=== PATIENT | female | born 1935 | race Caucasian/White ===

== ENCOUNTER → 2016-06-29 | Outpatient (CLI) | payer MEDICARE ==
[~2016-06-29] MED LIST: AMIT10TA6 PO; AMLO1CAP6 PO; AMLO2.5T PO; ASP81CT; CARTIA XT ER; CORAL CALCIUM; ESTR0.5T PO; GLUCOSAMINE/CONDROIT; HCTZ12.5T; IBP200T; METO-272 PO; MULT1TAB63; NAPR220T76 PO; OMEP20TA2 PO; OMG1KC; PREMARIN 0.3MG
== END ==
LOC: CARD 10:25
PROVIDERS: ATTEND Internal Medicine
DX: R00.2 Palpitations (principal)
CPT/HCPCS: 93225; 93226

== ENCOUNTER → 2016-08-30 | Outpatient (CLI) | payer MEDICARE ==
--- NOTE | 2016-08-30 19:59 | Diagnostic Imaging Report ---
Bilateral screening mammogram The current study was also evaluated with a Computer Aided Detection (CAD) system. Indication: Screening. No current complaints stated on the questionnaire. COMPARISON: 06/19/15. FINDINGS: The breasts are composed of scattered fibroglandular densities. There are scattered benign-appearing calcifications. Allowing for technique and positional differences, no suspicious change is seen. IMPRESSION: Dense breasts with no definite change. ACR BI-RADS Category 2: Benign findings. Result letter will be mailed to the patient. Note: At least 10% of breast cancer is not imaged by mammography. Dictated by: Dictated on workstation # [id number]
== END ==
LOC: RAD 11:17
PROVIDERS: ATTEND Internal Medicine
DX: Z12.31 Encounter for screening mammogram for malignant neoplasm of breast (principal)
CPT/HCPCS: 77067

== ENCOUNTER → 2017-01-03 | Outpatient (CLI) | payer MEDICARE ==
[~2017-01-03] MED LIST changes: +ASPI-586 PO; +ASPI-983 PO; +CALC-140 PO; +ESTR1TAB24 PO; +FERR325T5 PO; +GLUC-144 PO; +METO-370 PO; +MULT1CAP27 PO; +NAPR220C11 PO; +PANT40TA3; +RIVA20TA PO
--- NOTE | 2017-01-03 16:40 | Diagnostic Imaging Report ---
Three views of the right ribs. INDICATION: Right rib pain. FINDINGS: No rib fracture is seen. The right lung is clear. The heart size is mildly enlarged. IMPRESSION: No rib fracture is seen. Dictated by: Dictated on workstation # [id number]
--- NOTE | 2017-01-04 12:32 | Diagnostic Imaging Report ---
EXAMINATION: Three views of the thoracic spine. INDICATION: Back pain. FINDINGS: The vertebral body heights are preserved. The disc heights are also preserved. The alignment at the posterior spinal line is satisfactory. There are multilevel anterior osteophytes in the mid and lower thoracic spine. The paraspinal soft tissues appear unremarkable except for mild cardiac enlargement. IMPRESSION: Mild degenerative changes. Cardiomegaly. Dictated by: Dictated on workstation # [id number]
== END ==
LOC: RAD 16:04
PROVIDERS: ATTEND Nurse Practitioner
DX: M54.6 Pain in thoracic spine (principal); R07.81 Pleurodynia
CPT/HCPCS: 71100; 72072

== ENCOUNTER → 2017-01-06 | Outpatient (CLI) | payer MEDICARE ==
[~2017-01-06] MED LIST changes: -ASPI-586 PO; -ASPI-983 PO; -CALC-140 PO; -ESTR1TAB24 PO; -FERR325T5 PO; -GLUC-144 PO; -METO-370 PO; -MULT1CAP27 PO; -NAPR220C11 PO; -PANT40TA3; -RIVA20TA PO
--- NOTE | 2017-01-06 09:26 | Diagnostic Imaging Report ---
PROCEDURE: US abdomen complete. TECHNIQUE: Multiple real-time grayscale images were obtained over the abdomen in various projections. INDICATION: Abdominal pain FINDINGS: The visualized portions of the pancreas appear unremarkable. The pancreas is fairly homogeneous with no focal lesion. There is hepatopetal flow in the portal vein seen. The gallbladder demonstrates no stones or wall thickening. The CBD is 6 cm in caliber. The spleen is 7.2 CM in length. The right kidney is 11.6 and the left kidney is 10.8 CM in length. There is no hydronephrosis or focal lesion. The abdominal aorta is normal in caliber. The IVC appears unremarkable. There is no ascites seen. Sonographic Lu sign is reportedly negative. IMPRESSION: Unremarkable exam. Dictated by: Dictated on workstation # [id number]
== END ==
LOC: RAD 06:41
PROVIDERS: ATTEND Nurse Practitioner
DX: R10.84 Generalized abdominal pain (principal)
CPT/HCPCS: 76700

== ENCOUNTER → 2017-02-28 | Outpatient (CLI) | payer MEDICARE ==
[2017-02-28 15:03] LABS: BASOPHILS % (AUTO) 0 % (0-10); EOSINOPHILS # (AUTO) 0.1 10^3/uL (0.0-0.3); EOSINOPHILS % (AUTO) 1 % (0-10); LYMPHOCYTES # (AUTO) 1.8 X 10^3 (1.0-4.0); LYMPHOCYTES % (AUTO) 32 % (12-44); MEAN CORPUSCULAR HEMOGLOBIN 21 PG (25-34); MEAN CORPUSCULAR HGB CONC 29 G/DL (32-36); MEAN CORPUSCULAR VOLUME 73 FL (80-99); MEAN PLATELET VOLUME 10.2 FL (7.4-10.4); MONOCYTES # (AUTO) 0.6 X 10^3 (0.0-1.0); MONOCYTES % (AUTO) 10 % (0-12); NEUTROPHILS # (AUTO) 3.2 X 10^3 (1.8-7.8); NEUTROPHILS % (AUTO) 56 % (42-75); PLATELET COUNT 255 10^3/uL (130-400); RED CELL DISTRIBUTION WIDTH 16.5 % (10.0-14.5); RETICULOCYTE % 1.28 % (0.50-2.40); WHITE BLOOD COUNT 5.7 10^3/uL (4.3-11.0)
[2017-02-28 15:31] LABS: BAND NEUTROPHILS 0 %; BASOPHILS % (MANUAL) 1 %; EOSINOPHILS % (MANUAL) 1 %; LYMPHOCYTES % (MANUAL) 36 %; NEUTROPHILS % (MANUAL) 58 %
[2017-02-28 15:32] LABS: ANISOCYTOSIS MODERATE; HYPOCHROMASIA MARKED; MICROCYTOSIS SLIGHT
== END ==
LOC: LAB 14:39
PROVIDERS: ATTEND Internal Medicine
DX: D62 Acute posthemorrhagic anemia (principal)
CPT/HCPCS: 36415; 82728; 85007; 85027; 85045

== ENCOUNTER 2017-03-15 07:54 | Outpatient (RCR) | payer MEDICARE ==
[~2017-03-15] VITALS: Ht 162.6 cm; Wt 74.8 kg
[2017-03-15] VITALS (8 sets, daily range): BP systolic 122–166; BP diastolic 59–68
[2017-03-15] MEDS ORDERED: NS IV 500 ML 500 ML ONE (08:26)
[2017-03-15] MEDS ORDERED: NS IV 500 ML 500 ML IV SCH (10:00)
[2017-03-15] MEDS ORDERED: RIVA20TA PO (13:26)
[2017-03-15] MEDS ORDERED: ASPI-983 PO (13:26)
[2017-03-15] MEDS ORDERED: MULT1CAP27 PO (13:26)
[2017-03-15] MEDS ORDERED: METO-370 PO (13:26)
[2017-03-15] MEDS ORDERED: NAPR220C11 PO (13:26)
[2017-03-15] MEDS ORDERED: ESTR1TAB24 PO (13:26)
[2017-03-15] MEDS ORDERED: CALC-140 PO (13:26)
[2017-03-15] MEDS ORDERED: GLUC-144 PO (13:26)
[2017-03-22] MEDS ORDERED: METO-370 PO (10:47)
[2017-03-22] MEDS ORDERED: GLUC-144 PO (10:47)
[2017-03-22] MEDS ORDERED: CALC-140 PO (10:47)
[2017-03-22] MEDS ORDERED: NAPR220C11 PO (10:47)
[2017-03-22] MEDS ORDERED: ASPI-586 PO (10:47)
[2017-03-22] MEDS ORDERED: ESTR1TAB24 PO (10:47)
[2017-03-22] MEDS ORDERED: FERR325T5 PO (10:47)
[2017-03-22] MEDS ORDERED: RIVA20TA PO (10:48)
[2017-03-30] MEDS ORDERED: PANT40TA3 (19:31)
== END 2017-06-12 | disposition home or self-care (01) ==
LOC: SDC 07:54
PROVIDERS: ATTEND Internal Medicine
DX: D64.9 Anemia, unspecified (principal)
CPT/HCPCS: 36415; 36430; 82728; 86850; 86900; 86901; 86920

== ENCOUNTER 2017-03-22 05:43 | Outpatient (CLI) | payer MEDICARE ==
[~2017-03-22] VITALS: Ht 162.6 cm; Wt 74.8 kg
[~2017-03-22 05:43] MED LIST changes: +ASPI-983 PO; +CALC-140 PO; +ESTR1TAB24 PO; +GLUC-144 PO; +MULT1CAP27 PO; +NAPR220C11 PO; +RIVA20TA PO
[2017-03-22] MEDS ORDERED: FERR325T5 PO (10:47)
[2017-03-22] MEDS ORDERED: CALC-140 PO (10:47)
[2017-03-22] MEDS ORDERED: ASPI-586 PO (10:47)
[2017-03-22] MEDS ORDERED: NAPR220C11 PO (10:47)
[2017-03-22] MEDS ORDERED: GLUC-144 PO (10:47)
[2017-03-22] MEDS ORDERED: ESTR1TAB24 PO (10:47)
[2017-03-22] MEDS ORDERED: METO-272 PO (10:47)
[2017-03-22] MEDS ORDERED: RIVA20TA PO (10:48)
== END 2017-03-22 10:50 ==
LOC: PREOP 05:43
PROVIDERS: ATTEND Surgery
DX: Z01.818 Encounter for other preprocedural examination (principal); D50.9 Iron deficiency anemia, unspecified

== ENCOUNTER 2017-03-24 10:15 | Day surgery (SDC) | payer MEDICARE ==
[~2017-03-24] VITALS: Ht 162.6 cm; Wt 74.8 kg
[~2017-03-24 10:15] MED LIST changes: +ASPI-586 PO; +FERR325T5 PO
[2017-03-24 10:30] VITALS: BP 183/85
[2017-03-24] MEDS ORDERED: NS IV 500 ML 500 ML IV PRN (10:30)
[2017-03-24] MEDS ORDERED: HURRICAINE EXT TUBE (BENZOCAINE) XX PRN (10:45)
--- NOTE | 2017-03-24 11:19 | History & Physicial ---
History of Present Illness History of Present Illness Reason for visit/HPI to undergo an upper endoscopy with concomitant colonoscopy, to evaluate iron deficiency anemia requiring blood transfusion Date of Admission Date Seen by Provider: Mar 24, 2017 Time Seen by Provider: 11:17 I consulted on this patient on 03/24/17 11:17 Attending Physician Andrea Montes MD Admitting Physician Sd Alarcon MD Consult Allergies and Home Medications Allergies Coded Allergies: No Known Drug Allergies (Verified , 07/28/07) Home Medications Aspirin 81 Mg Tablet.dr, 81 MG PO DAILY, (Reported) Calcium Carbonate/Vitamin D3 1 Each Tablet, 1 EACH PO BID, (Reported) Estradiol 1 Mg Tablet, 1 MG PO UD, (Reported) take 3 times a week, takes on TUE,TUE,TUE Ferrous Sulfate 325 Mg Tablet.dr, 325 MG PO BID, (Reported) Glucosamine HCl/Chondr Cruz A Na 1 Each Tablet, 1 EACH PO BID, (Reported) Metoprolol Succinate 50 Mg Tab.er.24h, 50 MG PO BID, (Reported) Naproxen Sodium 220 Mg Capsule, 220 MG PO DAILY, (Reported) Rivaroxaban 20 Mg Tablet, 20 MG PO DAILY, (Reported) Past Sfcvxsl-Cxovic-Anmggf Hx Patient Social History Employed/Student: retired Alcohol Use: Denies Use Recreational Drug Use: No Smoking Status: Former Smoker Former Smoker, Quit: Jun 06, 1969 Recent Foreign Travel: No Contact w/other who traveled: No Recent Hopitalizations: No Recent Infectious Disease Expo: No Immunizations Up To Date Date of Pneumonia Vaccine: Jul 15, 2008 Date of Influenza Vaccine: Mar 04, 2017 Seasonal Allergies Seasonal Allergies: No Respiratory No Cardiovascular Yes Atrial Fibrillation, Hypertension Neurological No Reproductive System Hx Reproductive Disorders: No Genitourinary No Gastrointestinal No Musculoskeletal Yes Arthritis, Chronic Back Pain Endocrine History of Endocrine Disorders: No HEENT History of HEENT Disorders: No Cancer No Blood Transfusions Adverse Reaction to a Blood Tr: No Family Medical History Significant Family History: No Pertinent Family Hx Constitutional: malaise EENTM: no symptoms reported Respiratory: no symptoms reported Cardiovascular: no symptoms reported Gastrointestinal: see HPI Genitourinary: no symptoms reported Musculoskeletal: no symptoms reported Skin: no symptoms reported Psychiatric/Neurological: No Symptoms Reported Physical Exam Vital Signs Vital Sign - Last 12Hours 03/24/17 10:30 Temp 97.9 Pulse 83 Resp 16 B/P (MAP) 183/85 Pulse Ox 96 O2 Delivery Room Air Capillary Refill : General Appearance: No Apparent Distress Neck: Normal Inspection Cardiovascular: Regular Rate, Rhythm Gastrointestinal: Non Tender, Soft Rectal: Deferred Neurologic/Psychiatric: Alert, Oriented x3 Skin: Warm/Dry Assessment/Plan Assessment and Plan lady with ongoing iron deficiency anemia. 4 EGD with colonoscopy Problems: ANDREA MONTES MD Mar 24, 2017 11:19 am
--- NOTE | 2017-03-24 11:20 | Conscious Sedation/ASA ---
Conscious Sedation Pre-Proced Time Reviewed: 11:19 ASA Class: 2 Airway Mallampati Classification: ([place] appropriate class) I. II. III, IV Lungs Heart ASA score ASA 1: a normal healthy patient ASA 2: a patient with a mild systemic disease (mid diabetes, controlled hypertension, obesity ASA 3: a patient with a severe systemic disease that limits activity (angina , COPD, prior Myocardial infarction) ASA 4: a patient with an incapacitating disease that is a constant threat to life (CHF, renal failure) ASA 5: a moribund patient not expected to survive 24 hrs. (ruptured aneurysm) ASA 6: a declared brain patient whose organs are being harvested. For emergent operations, add the letter E after the classification Grade 1 Sedation Plan: Discussed options with patient/fam Note The patient is an appropriate candidate to undergo the planned procedure, sedation, and anesthesia. The patient immediately re-assessed prior to indication. ANDREA MONTES MD Mar 24, 2017 11:20 am
[2017-03-24] MEDS ORDERED: fentaNYL INJECTION 100 MCG/2 ML AMP ONE ×2 (11:32)
[2017-03-24] MEDS ORDERED: HURRICAINE EXT TUBE (BENZOCAINE) ONE (11:33)
[2017-03-24] MEDS ORDERED: MIDAZOLAM 2 MG/2 ML (VERSED) VIAL ONE ×4 (11:33)
[2017-03-24] MEDS: MIDAZOLAM 2 MG/2 ML (VERSED) VIAL IVP PRN ×3 (11:55→12:02)
[2017-03-24] MEDS: fentaNYL INJECTION 100 MCG/2 ML AMP IVP PRN ×2 (11:56→11:59)
--- NOTE | 2017-03-24 12:26 | Endo Procedure Record ---
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 No polyps Procedure Performed EGD colonoscopy to cecum Description of Procedure Anesthesia Type: Conscious Sedation Specimen(s) collected/removed none Description of the Procedure Indication for procedure: This lady came in for GI endoscopy to investigate ongoing iron deficiency anemia, requiring blood transfusion. Informed consent was obtained after reviewing the procedures in detail. Description of the procedures. EGD: She was placed in left lateral decubitus position and her vital signs were monitored. Conscious sedation was achieved using Versed and fentanyl. The flexible gastroscope was introduced down the esophagus, past the stomach, into the proximal duodenum. Findings Esophagus: Tortuous with a short, uncomplicated hiatal hernia. Stomach: Multiple shallow erosions and AV malformations with found at the distal stomach. There was no active bleeding. Duodenum : Normal. She tolerated the procedure well and was turned around in preparation for colonoscopy. Impression: Iron deficiency anemia. 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 Colonoscopy: Digital rectal examination was unremarkable. The colonoscope was then introduced into the rectum and advanced all the way up to the cecum. The quality of bowel preparation was excellent. The scope was then withdrawn slowly and the mucosa examined in a systematic fashion. Finding: Diffuse diverticulosis. No polyps were found. She tolerated both procedures well and was taken back to the nursing area in a stable condition. Impression: Iron deficiency anemia. No polyps. Diffuse diverticulosis Copies To: JULIAN CADET MD, XAVIER M MD Mar 24, 2017 12:26 pm
--- NOTE | 2017-03-24 12:28 | Discharge Inst-Simple/Standard ---
Discharge Inst-Standard Discharge Medications New, Converted or Re-Newed RX: Other Patient Instructions/Follow Up Plan of Care/Instructions/FU: please call for Protonix 40 mg daily for 30 days with 5 refills to her pharmacy. Follow-up with Dr. Alarcon, her primary physician. Activity as Tolerated: Yes Discharge Diet: No Restrictions ANDREA MONTES MD Mar 24, 2017 12:28 pm
[2017-03-24 12:30] VITALS: BP 154/72
[2017-03-24 13:00] VITALS: BP 161/76
[2017-03-24 13:19] VITALS: BP 161/76
== END 2017-03-24 13:15 | disposition home or self-care (01) ==
LOC: ENDO 10:15
PROVIDERS: ATTEND Surgery
DX: D50.9 Iron deficiency anemia, unspecified (principal); K57.30 Diverticulosis of large intestine without perforation or abscess without bleeding; K31.819 Angiodysplasia of stomach and duodenum without bleeding; K25.9 Gastric ulcer, unspecified as acute or chronic, without hemorrhage or perforation; K44.9 Diaphragmatic hernia without obstruction or gangrene; I48.91 Unspecified atrial fibrillation; I10 Essential (primary) hypertension; Z87.891 Personal history of nicotine dependence; Z79.82 Long term (current) use of aspirin

== ENCOUNTER 2017-03-30 18:53 | Emergency (ER) | payer MEDICARE ==
[~2017-03-30] VITALS: Ht 162.6 cm; Wt 73.9 kg
[2017-03-30] MEDS ORDERED: ASPIRIN 81 MG CHEW (CHILDREN'S ASA) PO ONE (19:30)
[2017-03-30] MEDS ORDERED: PANT40TA3 (19:31)
[2017-03-30 19:52] LABS: BASOPHILS % (AUTO) 0 % (0-10); EOSINOPHILS % (AUTO) 0 % (0-10); LYMPHOCYTES # (AUTO) 1.6 X 10^3 (1.0-4.0); LYMPHOCYTES % (AUTO) 20 % (12-44); MEAN CORPUSCULAR HEMOGLOBIN 25 PG (25-34); MEAN CORPUSCULAR HGB CONC 32 G/DL (32-36); MEAN CORPUSCULAR VOLUME 78 FL (80-99); MONOCYTES # (AUTO) 1.3 X 10^3 (0.0-1.0); MONOCYTES % (AUTO) 15 % (0-12); NEUTROPHILS # (AUTO) 5.2 X 10^3 (1.8-7.8); NEUTROPHILS % (AUTO) 64 % (42-75); PLATELET COUNT 206 10^3/uL (130-400); RED BLOOD COUNT 4.84 10^6/uL (4.35-5.85); RED CELL DISTRIBUTION WIDTH 25.3 % (10.0-14.5); WHITE BLOOD COUNT 8.1 10^3/uL (4.3-11.0)
[2017-03-30] MEDS ORDERED: meTOproloL SUCCINATE 50 MG (TOPROL XL) TAB PO SCH (20:00)
[2017-03-30] MEDS ORDERED: meTOprolol 5 MG/5 ML (LOPRESSOR) VIAL IV ONE (20:00)
[2017-03-30 20:05] LABS: INR 1.8 (0.8-1.4); PROTHROMBIN TIME PATIENT 21.1 SEC (12.2-14.7)
[2017-03-30 20:14] LABS: ALANINE AMINOTRANSFERASE 8 U/L (0-55); ALBUMIN 3.6 GM/DL (3.2-4.5); AMYLASE 73 U/L (25-125); ANION GAP 8 MMOL/L (5-14); ASPARTATE AMINO TRANSFERASE 23 U/L (5-34); BILIRUBIN,TOTAL 0.6 MG/DL (0.1-1.0); BLOOD UREA NITROGEN 14 MG/DL (7-18); BUN/CREATININE RATIO 16; CALCIUM 9.3 MG/DL (8.5-10.1); CARBON DIOXIDE 28 MMOL/L (21-32); CHLORIDE 102 MMOL/L (98-107); CREATINE KINASE 52 U/L (29-168); CREATININE SERUM 0.86 MG/DL (0.60-1.30); GFR ESTIMATED > 60; GLUCOSE 140 MG/DL (70-105); LIPASE 16 U/L (8-78); POTASSIUM 3.9 MMOL/L (3.6-5.0); SODIUM 138 MMOL/L (135-145); TOTAL PROTEIN 7.2 GM/DL (6.4-8.2)
--- NOTE | 2017-03-30 20:16 | Diagnostic Imaging Report ---
INDICATION: Elevated blood pressure. Complaining of chest pain, neck and shoulder pain. EXAMINATION: Chest, 03/30/2017. COMPARISON: 10/20/12. FINDINGS: Cardiomegaly noted. Pulmonary vasculature is unremarkable. There is a density superimposed upon the lower thoracic spine, larger than on previous imaging and most likely a large hiatal hernia. Although it is increased it appears more prominent than on previous. It is similar to a study dated 10/20/12. There is atelectasis at the lung bases. No effusions. No pneumothorax. IMPRESSION: Cardiomegaly with likely superimposed large hiatal hernia. Remaining chest is fairly similar to previous imaging. Dictated by: Dictated on workstation # [id number]
[2017-03-30 20:20] LABS: TROPONIN I < 0.30 NG/ML (<0.30)
[2017-03-30 20:31] VITALS: BP 165/86
[2017-03-30] MEDS ORDERED: IOHEXOL 350 MG/ML 150 ML (OMNIPAQUE 350) VIAL IV ONE (21:30)
[2017-03-30] MEDS ORDERED: NS 100 ML (IVPB) BAG IV ONE (21:30)
--- NOTE | 2017-03-30 22:31 | Diagnostic Imaging Report ---
INDICATION: Upper back pain for a day, increasing blood pressure. Prior hysterectomy. EXAMINATION: CTA of the chest with a CT of the abdomen and pelvis with contrast 03/30/2017 Correlation made to a previous CTA dated 07/28/2007 FINDINGS: The thoracic aorta is intact and unremarkable. The pulmonary arteries demonstrate no central or proximal segmental pulmonary emboli. There is no evidence for hilar adenopathy. No mediastinal or axillary adenopathy is appreciated. There is no acute process within the lungs. There are areas of scar or atelectasis noted in the lingular region. There is a large hiatal hernia. CT abdomen and pelvis: Multiple cystic appearing lesions noted in the liver, the largest is approximately 14 mm in greatest dimension. It is unchanged from the previous examination. Multiple similar but smaller areas of hypodensity diffusely throughout the liver too small to characterize. The spleen is unremarkable. The adrenal glands demonstrate mild hyperplasia on the left with the right adrenal gland unremarkable. Pancreas is normal. Kidneys demonstrate extrarenal pelves bilaterally, right larger than left, a definite obstructive process not appreciated. There is no ascites or free air. No lymphadenopathy. Diverticulosis noted throughout the sigmoid colon without evidence for diverticulitis. The appendix is unremarkable. A fat-containing anterior abdominal wall hernia is noted. There is atherosclerotic disease. There is diffuse degenerative disease within the visualized osseous structures with an area of moderate to possibly severe stenosis centrally in the lower lumbar region. Nonspecific apparent fecalization of the small bowel loops is also noted but no obstruction is appreciated with no dilatation of the bowel loops noted. IMPRESSION: 1. Large hiatal hernia 2. Chronic changes within the chest with emphysematous disease and no acute abnormality. No pulmonary embolus is seen. 3. Lesions in the liver too small to characterize with the larger area stable from previous, therefore likely a benign process. Extrarenal pelvis noted in both kidneys with no obstructive process seen distally to suggest hydronephrosis. 4. Diffuse diverticular disease along the sigmoid colon with definite diverticulitis not seen but very early diverticulitis may not be visualized; correlate with symptoms. 5. Mild fecalization noted within the small bowel loops which is typically seen in a chronic ileus or obstructive process but no dilated loops of bowel or evidence for obstruction seen. Clinical correlation recommended. Other incidental findings as noted above. Dictated by: Dictated on workstation # [id number]
[2017-03-30 23:00] VITALS: BP 155/90
[2017-03-30] MEDS ORDERED: PANTOPRAZOLE 40 MG/10 ML (PROTONIX) VIAL IV ONE (23:00)
[2017-03-30] MEDS ORDERED: KETOROLAC 30 MG/ML VIAL IVP ONE (23:00)
--- NOTE | 2017-03-30 23:39 | ED General ---
General Chief Complaint: Cardiac/General Problems Stated Complaint: HIGH BLOOD PRESSURE,UPPER BACK/NECK PAIN Nursing Triage Note: c/o upper back/neck pain x2 days. reports high blood pressure tonight Nursing Sepsis Screen: No Definite Risk Allergies and Home Medications Allergies Coded Allergies: No Known Drug Allergies (Verified , 07/28/07) Home Medications Aspirin 81 Mg Tablet.dr, 81 MG PO DAILY, (Reported) Calcium Carbonate/Vitamin D3 1 Each Tablet, 1 EACH PO BID, (Reported) Estradiol 1 Mg Tablet, 1 MG PO UD, (Reported) take 3 times a week, takes on MON,TUE,TUE Ferrous Sulfate 325 Mg Tablet.dr, 325 MG PO BID, (Reported) Glucosamine HCl/Chondr Cruz A Na 1 Each Tablet, 1 EACH PO BID, (Reported) Metoprolol Succinate 50 Mg Tab.er.24h, 50 MG PO BID, (Reported) Pantoprazole Sodium 40 Mg Tablet.dr, (Reported) Rivaroxaban 20 Mg Tablet, 20 MG PO DAILY, (Reported) Past Yinwyzt-Mwovpu-Udnnvk Hx Patient Social History Alcohol Use: Denies Use Recreational Drug Use: No Smoking Status: Former Smoker Type Used: Cigarettes Former Smoker, Quit: Jun 06, 1969 Recent Foreign Travel: No Contact w/Someone Who Travel: No Recent Infectious Disease Expo: No Recent Hopitalizations: No Immunizations Up To Date Tetanus Booster (TDap): Unknown Date of Pneumonia Vaccine: Jul 15, 2008 Date of Influenza Vaccine: Mar 04, 2017 Seasonal Allergies Seasonal Allergies: No Surgeries History of Surgeries: Yes (HYST,R BREAST BIOPSY,CATARACTS REMOVED,LENS IMPLANTS ) Respiratory History of Respiratory Disorde: No Cardiovascular History of Cardiac Disorders: Yes Cardiac Disorders: Atrial Fibrillation, Hypertension Neurological History of Neurological Disord: No Reproductive System : No Hx Reproductive Disorders: No [employer] History: Menopausal Genitourinary History of Genitourinary Disor: No Gastrointestinal History of Gastrointestinal Di: No Musculoskeletal History of Musculoskeletal Dis: Yes Musculoskeletal Disorders: Arthritis, Chronic Back Pain Endocrine History of Endocrine Disorders: No HEENT History of HEENT Disorders: No Cancer History of Cancer: No Psychosocial History of Psychiatric Problem: No Integumentary History of Skin or Integumenta: No Blood Transfusions History of Blood Disorders: Yes (ANEMIA) Adverse Reaction to a Blood Tr: No Family Medical History Significant Family History: No Pertinent Family Hx Physical Exam Vital Signs Vital Sign - Last 12Hours 03/30/17 19:31 Temp 98.4 Pulse 88 Resp 18 B/P (MAP) 201/85 Pulse Ox 97 O2 Delivery Room Air Capillary Refill : Less Than 3 Seconds Progress/Results/Core Measures Results/Orders Lab Results Laboratory Tests Test 03/30/17 19:40 Range/Units White Blood Count 8.1 4.3-11.0 10^3/uL Red Blood Count 4.84 4.35-5.85 10^6/uL Hemoglobin 11.9 11.5-16.0 G/DL Hematocrit 38 35-52 % Mean Corpuscular Volume 78 L 80-99 FL Mean Corpuscular Hemoglobin 25 25-34 PG Mean Corpuscular Hemoglobin Concent 32 32-36 G/DL Red Cell Distribution Width 25.3 H 10.0-14.5 % Platelet Count 206 130-400 10^3/uL Mean Platelet Volume 7.4-10.4 FL Neutrophils (%) (Auto) 64 42-75 % Lymphocytes (%) (Auto) 20 12-44 % Monocytes (%) (Auto) 15 H 0-12 % Eosinophils (%) (Auto) 0 0-10 % Basophils (%) (Auto) 0 0-10 % Neutrophils # (Auto) 5.2 1.8-7.8 X 10^3 Lymphocytes # (Auto) 1.6 1.0-4.0 X 10^3 Monocytes # (Auto) 1.3 H 0.0-1.0 X 10^3 Eosinophils # (Auto) 0.0 0.0-0.3 10^3/uL Basophils # (Auto) 0.0 0.0-0.1 10^3/uL Prothrombin Time 21.1 H 12.2-14.7 SEC INR Comment 1.8 H 0.8-1.4 Activated Partial Thromboplast Time 44 H 24-35 SEC Sodium Level 138 135-145 MMOL/L Potassium Level 3.9 3.6-5.0 MMOL/L Chloride Level 102 98-107 MMOL/L Carbon Dioxide Level 28 21-32 MMOL/L Anion Gap 8 5-14 MMOL/L Blood Urea Nitrogen 14 7-18 MG/DL Creatinine 0.86 0.60-1.30 MG/DL Estimat Glomerular Filtration Rate > 60 BUN/Creatinine Ratio 16 Glucose Level 140 H 70-105 MG/DL Calcium Level 9.3 8.5-10.1 MG/DL Magnesium Level 2.0 1.8-2.4 MG/DL Total Bilirubin 0.6 0.1-1.0 MG/DL Aspartate Amino Transf (AST/SGOT) 23 5-34 U/L Alanine Aminotransferase (ALT/SGPT) 8 0-55 U/L Alkaline Phosphatase 50 40-136 U/L Total Creatine Kinase 52 29-168 U/L Creatine Kinase MB 0.8 <6.6 NG/ML Troponin I < 0.30 <0.30 NG/ML B-Type Natriuretic Peptide 73.8 <100.0 PG/ML Total Protein 7.2 6.4-8.2 GM/DL Albumin 3.6 3.2-4.5 GM/DL Amylase Level 73 25-125 U/L Lipase 16 8-78 U/L My Orders Orders - CATHY SMITH DO Amylase (03/30/17 19:21) Cbc With Automated Diff (03/30/17 19:21) Comprehensive Metabolic Panel (03/30/17 19:21) Creatine Kinase (03/30/17 19:21) Creatine Kinase Mb (03/30/17 19:21) Lipase (03/30/17 19:21) Partial Thromboplastin Time (03/30/17 19:21) Protime With Inr (03/30/17 19:21) Troponin I (03/30/17 19:21) Chest 1 View, Ap/Pa Only (03/30/17 19:21) O2 (03/30/17 19:21) Ekg Tracing (03/30/17 19:21) Aspirin Chewable Tablet (Baby Aspirin Ch (03/30/17 19:30) BNP (03/30/17 19:21) Monitor-Rhythm Ecg Trace Only (03/30/17 19:21) Magnesium (03/30/17 19:21) Metoprolol Tartrate Injection (Lopressor (03/30/17 20:00) Metoprolol Succinate (Xl) Tab (Toprol Xl (03/30/17 20:00) Ct Vivian Chest/Noang Abd-Pelv W (03/30/17 20:56) Iohexol Injection (Omnipaque 350 Mg/Ml 1 (03/30/17 21:30) Ns (Ivpb) (Sodium Chloride 0.9% Ivpb Bag (03/30/17 21:30) Ketorolac Injection (Toradol Injection) (03/30/17 23:00) Pantoprazole Injection (Protonix Injecti (03/30/17 23:00) Medications Given in ED Current Medications Medications Dose Ordered Sig/Erich Route Start Time Stop Time Status Last Admin Dose Admin Aspirin 324 mg ONCE ONCE PO 03/30/17 19:30 03/30/17 19:31 DC 03/30/17 19:36 324 MG Iohexol 150 ml ONCE ONCE IV 03/30/17 21:30 03/30/17 22:16 DC 03/30/17 21:35 145 ML Metoprolol Tartrate 5 mg ONCE ONCE IV 03/30/17 20:00 03/30/17 20:01 DC 03/30/17 20:14 5 MG Sodium Chloride 100 ml ONCE ONCE IV 03/30/17 21:30 03/30/17 22:16 DC 03/30/17 21:35 100 ML Vital Signs/I&O Vital Sign - Last 12Hours 03/30/17 03/30/17 03/30/17 19:31 19:31 20:31 Temp 98.4 Pulse 88 74 Resp 18 16 B/P (MAP) 201/85 165/86 Pulse Ox 97 97 96 O2 Delivery Room Air Room Air Room Air Blood Pressure Mean: 112 Departure Impression Impression: Primary Impression: Uncontrolled hypertension Additional Impressions: Labile hypertension Back pain Chronic atrial fibrillation Hiatal hernia Disposition: 01 HOME, SELF-CARE Condition: Improved Departure-Patient Inst. Referrals: JULIAN CADET MD (PCP/Family) Primary Care Physician Patient Instructions: Atrial Fibrillation (DC), Heart Healthy Diet, Hiatal Hernia (DC), High Blood Pressure (DC), Upper Back Pain (DC) Add. Discharge Instructions: CONTINUE YOUR MEDICATIONS PRESCRIBED FOLLOW UP WITH DR. CADET THIS WEEK FOR FURTHER CARE All discharge instructions reviewed with patient and/or family. Voiced understanding. CATHY SMITH DO Mar 30, 2017 23:00
== END 2017-03-30 23:00 | disposition home or self-care (01) ==
LOC: EDUNIT# 18:53 → ER 18:54
DX: M54.2 Cervicalgia (principal); I10 Essential (primary) hypertension; I48.2 Chronic atrial fibrillation; K44.9 Diaphragmatic hernia without obstruction or gangrene; Z79.82 Long term (current) use of aspirin; Z79.01 Long term (current) use of anticoagulants; Z87.891 Personal history of nicotine dependence
CPT/HCPCS: 36415; 71010; 71275; 74177; 80053; 82150; 82550; 82553; 83690; 83735; 83880; 84484; 85025; 85610; 85730; 93005; 93041; 96374; 96375

== ENCOUNTER → 2018-02-24 | Outpatient (CLI) | payer MEDICARE ==
[~2018-02-24] MED LIST changes: +METO-370 PO; +PANT40TA3
--- NOTE | 2018-02-27 18:01 | Diagnostic Imaging Report ---
INDICATION: Screening. The current study was also evaluated with a Computer Aided Detection (CAD) system. 3-D tomosynthesis was also performed and reviewed. COMPARISON is made with prior examinations from 08/30/2016 back through 04/09/2011 FINDINGS: The fibroglandular tissue is heterogeneously dense bilaterally. There are scattered benign-type calcifications. There is no new dominant mass, spiculated lesion or suspicious calcification identified. The skin, nipples and axillae are unremarkable. IMPRESSION: Category 2 benign. ACR BI-RADS Category 2: Benign findings. Result letter will be mailed to the patient. Note: At least 10% of breast cancer is not imaged by mammography. Dictated by: Dictated on workstation # [id number]
== END ==
LOC: RAD 10:10
PROVIDERS: ATTEND Nurse Practitioner
DX: Z12.31 Encounter for screening mammogram for malignant neoplasm of breast (principal)
CPT/HCPCS: 77067

== ENCOUNTER → 2018-10-27 | Outpatient (CLI) | payer MEDICARE ==
[~2018-10-27] MED LIST changes: -RIVA20TA PO; +RIVA20TA2 PO
--- NOTE | 2018-10-27 09:33 | Diagnostic Imaging Report ---
PROCEDURE: US carotid duplex, bilateral. TECHNIQUE: Multiple real-time grayscale images were obtained over the carotid arteries in various projections, bilaterally. Additional spectral analysis and color Doppler duplex images were also obtained. INDICATION: Atherosclerotic the carotid artery disease. FINDINGS: Color images demonstrate mild scattered plaque formation. This is most pronounced at the level of the carotid bifurcations. Common carotid arteries: Patent. There are no abnormally elevated velocities to suggest a hemodynamically significant stenosis. Internal carotid arteries: Patent. There are no abnormally elevated velocities to suggest a hemodynamically significant stenosis. External carotid arteries: Patent. Vertebral arteries: Patent and with antegrade direction of flow. DOPPLER (peak systolic velocity M/S Right Left CCA 0.68 0.63 ICA Proximal 0.46 0.42 ICA Mid 0.67 0.67 ICA Distal 0.80 0.96 RATIO 1.2 1.5 ECA 0.80 1.0 VERT 0.33 0.41 IMPRESSION: 1. Carotid Doppler imaging demonstrates no findings to suggest a hemodynamically significant stenosis of the internal carotid arteries at this time. Parameters based on the consensus panel Padilla-Scale and Doppler ultrasound criteria published April 2003, Radiology, Volume 229. Dictated by: Dictated on workstation # [id number]
== END ==
LOC: RAD 08:46
PROVIDERS: ATTEND Internal Medicine
DX: I65.29 Occlusion and stenosis of unspecified carotid artery (principal)
CPT/HCPCS: 93880

== ENCOUNTER 2019-01-18 10:58 | Outpatient (RCR) | payer MEDICARE | END 2019-01-18 12:32 | disposition home or self-care (01) | PROVIDERS: ATTEND Internal Medicine | DX: M54.31 Sciatica, right side (principal); R26.89 Other abnormalities of gait and mobility ==

== ENCOUNTER → 2019-02-26 | Outpatient (CLI) | payer MEDICARE ==
--- NOTE | 2019-02-26 19:11 | Diagnostic Imaging Report ---
INDICATION: Routine screening. Comparison is made with prior mammograms from 02/24/2018 and 08/30/2016. 2-D and 3-D bilateral screening mammography was performed. The current study was also evaluated with a Computer Aided Detection (CAD) system. 3-D tomosynthesis was also performed and reviewed. FINDINGS: Both breasts remain heterogeneously dense, limiting the sensitivity of mammography. Benign calcifications are again noted bilaterally. No mass or malignant-appearing microcalcifications are seen. Axillae are unremarkable. IMPRESSION: No mammographic features suspicious for malignancy are identified. ACR BI-RADS Category 2: Benign findings. Result letter will be mailed to the patient. Note: At least 10% of breast cancer is not imaged by mammography. Dictated by: Dictated on workstation # [id number]
== END ==
LOC: RAD 11:14
PROVIDERS: ATTEND Physician Assistant
DX: Z12.31 Encounter for screening mammogram for malignant neoplasm of breast (principal)
CPT/HCPCS: 77067

== ENCOUNTER → 2020-08-08 | Outpatient (CLI) | payer MEDICARE ==
[~2020-08-08] MED LIST changes: +ASPI-1238 PO; -ASPI-983 PO; -METO-370 PO; +METO50TA7 PO; -PANT40TA3; +PANT40TA52
--- NOTE | 2020-08-08 12:06 | Diagnostic Imaging Report ---
Indication: Routine screening. Comparison is made prior mammogram 02/26/2019 and 02/24/2018. 2-D and 3-D bilateral screening mammography was performed with CAD. Both breasts are heterogeneously dense, limiting the sensitivity of mammography. There are benign calcifications in both breasts. Benign-appearing nodules in the upper outer left breast appears stable. No spiculated mass or malignant appearing microcalcifications are seen. Axillae are unremarkable. IMPRESSION: BI-RADS Category 2 No mammographic features suspicious for malignancy are identified. ACR BI-RADS Category 2: Benign findings. Result letter will be mailed to the patient. Note: At least 10% of breast cancer is not imaged by mammography. Dictated by: Dictated on workstation # [id number]
== END ==
LOC: RAD 10:06
PROVIDERS: ATTEND Internal Medicine
DX: Z12.31 Encounter for screening mammogram for malignant neoplasm of breast (principal)
CPT/HCPCS: 77063; 77067

== ENCOUNTER 2021-05-07 13:36 | Outpatient (RCR) | payer MEDICARE | END 2021-05-07 15:15 | disposition home or self-care (01) | PROVIDERS: ATTEND Nurse Practitioner Family | DX: M54.59 Other low back pain (principal); M54.6 Pain in thoracic spine; M19.90 Unspecified osteoarthritis, unspecified site; I10 Essential (primary) hypertension ==

== ENCOUNTER → 2022-01-13 | Outpatient (CLI) | payer MEDICARE ==
--- NOTE | 2022-01-13 17:28 | Diagnostic Imaging Report ---
INDICATION: Left hand pain AP, oblique, lateral views of the left hand are obtained. No acute fracture or dislocation is seen. There is advanced degenerative change of the 1st carpal metacarpal joint. There is moderate degenerative changes radiocarpal joint. There is diffuse degenerative change throughout the interphalangeal joints, especially of the 2nd and 5th DIP joints. IMPRESSION: Multifocal degenerative changes as described above with no acute appearing abnormality. Dictated by: Dictated on workstation # [id number]
== END ==
LOC: RAD 14:48
PROVIDERS: ATTEND Internal Medicine
DX: M19.042 Primary osteoarthritis, left hand (principal)
CPT/HCPCS: 73130

== ENCOUNTER 2022-03-08 10:54 | Emergency (ER) | payer MEDICARE ==
[~2022-03-08] VITALS: Ht 162 cm; Wt 64.8 kg
[2022-03-08] MEDS ORDERED: L.E.T. SOLUTION 3 ML SYR TOP ONE (11:30)
--- NOTE | 2022-03-08 11:32 | ED Head Injury ---
General Chief Complaint: Laceration Stated Complaint: FALL - HEAD LAC Nursing Triage Note: pt presents to ed via pov from home with complaints of lac to l side of head after tripping over slipper and falling onto her tile floor. pt denies other injury or loc. Source: patient Exam Limitations: no limitations History of Present Illness Date Seen by Provider: Mar 08, 2022 Time Seen by Provider: 11:25 Initial Comments Patient is a 86 yo F who presents to the ED for evaluation after a mechanical fall at home after she tripped over her slippers. She states she fell and struck her head on the knob on a dresser. She states she sustained a laceration. She denies any LOC. No vomiting or AMS has been noted. She states the bleeding was controlled with direct pressure. She is unsure of the date of her last tetanus immunization. She is currently on Xarelto. Occurred: just prior to arrival Location: occipital, parietal Method of Injury: fell Loss of Consciousness: no loss of consciousness Allergies and Home Medications Allergies Coded Allergies: No Known Drug Allergies (Verified , 07/28/07) Patient Home Medication List Home Medication List Reviewed: Yes Aspirin (Aspir 81) 81 Mg Tablet.dr, 81 MG PO DAILY, (Reported) Entered as Reported by: LOIS GUY on 03/22/17 104 Calcium Carbonate/Vitamin D3 (Calcium + Vitamin D Tablet) 1 Each Tablet, 1 EACH PO BID, (Reported) Entered as Reported by: LOIS GUY on 03/22/17 104 Estradiol (Estradiol Tablet) 1 Mg Tablet, 1 MG PO UD, (Reported) Entered as Reported by: LOIS GUY on 03/22/17 104 Ferrous Sulfate (Ferrous Sulfate) 325 Mg Tablet.dr, 325 MG PO BID, (Reported) Entered as Reported by: LOIS GUY on 03/22/17 1047 Glucosamine HCl/Chondr Cruz A Na (Osteo Bi-Flex Caplet) 1 Each Tablet, 1 EACH PO BID, (Reported) Entered as Reported by: LOIS GUY on 03/22/17 104 Metoprolol Succinate (Metoprolol Succinate) 50 Mg Tab.er.24h, 50 MG PO BID, (Reported) Entered as Reported by: LOIS GUY on 03/22/17 104 Pantoprazole Sodium (Pantoprazole Sodium) 40 Mg Tablet., (Reported) Entered as Reported by: MESSI RYDER on 03/30/17 193 Rivaroxaban (Xarelto Tablet) 20 Mg Tablet, 20 MG PO DAILY, (Reported) Entered as Reported by: LOIS GUY on 03/22/17 1048 Review of Systems Review of Systems Constitutional: no symptoms reported Eyes: No Symptoms Reported Ears, Nose, Mouth, Throat: no symptoms reported Respiratory: no symptoms reported Cardiovascular: no symptoms reported Gastrointestinal: no symptoms reported Genitourinary: no symptoms reported Skin: other (laceration) Psychiatric/Neurological: Headache (mild) Past Bkohowv-Bhuoyp-Fsnapg Hx Patient Social History Tobacco Use?: No Substance use?: No Alcohol Use?: No Pt feels they are or have been: Yes Immunizations Up To Date Tetanus Booster (TDap): Unknown First/Initial COVID19 Vaccinat: YES Second COVID19 Vaccination Adebayo: yes Seasonal Allergies Seasonal Allergies: No Past Medical History Surgery/Hospitalization HX: afib Surgeries: Yes Eye Surgery, Hysterectomy, Oophorectomy Respiratory: No Cardiac: Yes Atrial Fibrillation, Hypertension Neurological: No Reproductive Disorders: No PROCESS DEVELOPMENT CHEMIST History: Menopausal Genitourinary: No Gastrointestinal: Yes (GASTRIC AV MALFORMATIONS) Gastroesophageal Reflux, Diverticulosis, Hiatal Hernia, Ulcer Musculoskeletal: Yes Arthritis, Chronic Back Pain Endocrine: No HEENT: Yes Cataract Cancer: No Psychosocial: No Integumentary: No Blood Disorders: Yes (ANEMIA) Adverse Reaction/Blood Tranf: No Physical Exam Vital Signs Vital Signs - First Documented 03/08/22 11:00 Temp 36.2 Pulse 75 Resp 16 B/P (MAP) 189/76 (113) Pulse Ox 97 Capillary Refill : Less Than 3 Seconds Height, Weight, BMI Height: 5'4.00" Weight: 163lbs. 0.0oz. 73.993051pl; 24.00 BMI Method:Stated General Appearance: WD/WN, no apparent distress HEENT: PERRL/EOMI, normal ENT inspection, TMs normal, pharynx normal Neck: non-tender, full range of motion, supple, normal inspection Cardiovascular: normal peripheral pulses, regular rate, rhythm Respiratory: chest non-tender, lungs clear, normal breath sounds, no respiratory distress Gastrointestinal: normal bowel sounds, non tender, soft Extremities: normal range of motion, non-tender, normal inspection Motor/Sensory: no motor deficit, no sensory deficit Skin: normal color, warm/dry, other (small contusion noted to the left parieto- occipital scalp with overlying superifical laceration) Procedures/Interventions Other Wound Location left parieto-occipital scalp Wound Length (cm): 1 Wound's Depth, Shape: superficial Wound Explored: clean Irrigated w/ Saline (ccs): 50 Staple Repair: Stapler 35W Progress wound was anesthetized with LET; a total of 2 florence were placed; patient tolerated well Progress/Results/Core Measures Results/Orders My Orders Orders - CALVIN CERDA APRN Let Solution (Let Solution) (03/08/22 11:30) Ct Head Wo (03/08/22 11:29) Dipht,Pertuss(Acell),Tet Adult (Boostrix (03/08/22 11:45) Medications Given in ED Current Medications Medications Dose Ordered Sig/Erich Route Start Time Stop Time Status Last Admin Dose Admin Diphtheria/ Tetanus/Acell Pertussis 0.5 ml ONCE ONCE IM 03/08/22 11:45 03/08/22 11:46 DC 03/08/22 11:55 0.5 ML Tetracaine/ Epinephrine/ Lidocaine 3 ml ONCE ONCE TOP 03/08/22 11:30 03/08/22 11:31 DC 03/08/22 11:55 3 ML Vital Signs/I&O 03/08/22 11:00 Temp 36.2 Pulse 75 Resp 16 B/P (MAP) 189/76 (113) Pulse Ox 97 Blood Pressure Mean: 113 Progress Progress Note : Progress Note Patient is nontoxic and well hydrated on exam. No focal neurologic deficits noted. CT of the head acutely negative. Laceration was repaired as noted seperately. Tetanus was updated. Will d/c home with recs for supportive care and follow-up with PCP in 7 days for staple removal. Wound care discussed. Return precautions for urgent symptomology discussed. Patient verbalized understanding. Departure Impression Primary Impression: Scalp laceration Qualified Codes: S01.01XA - Laceration without foreign body of scalp, initial encounter Additional Impression: Minor head trauma Disposition: HOME, SELF-CARE Condition: Improved Departure-Patient Inst. Decision time for Depature: 12:35 Referrals: JULIAN CADET MD (PCP/Family) Primary Care Physician Patient Instructions: Laceration Repair With [place] (DC), Minor Head Injury, Adult ED CALVIN CERDA APRN Mar 08, 2022 11:31
[2022-03-08] MEDS ORDERED: TETANUS,DIPTH,PERTUSS P/F (BOOSTRIX) 0.5 ML VIAL IM ONE (11:45)
--- NOTE | 2022-03-08 12:21 | Diagnostic Imaging Report ---
PROCEDURE: CT head without contrast. TECHNIQUE: Multiple contiguous axial images were obtained through the brain without the use of intravenous contrast. Auto Exposure Controls were utilized during the CT exam to meet ALARA standards for radiation dose reduction. INDICATION: Fall, head injury, lacerations. Compared with head CT 09/19/2013. FINDINGS: Cerebral cortical atrophy is a chronic senescent finding showed mild interval progression. Ventricular calibers are congruent with the degree of sulcation. There is no juliann hydrocephalus. Mild periventricular white matter small vessel disease showed mild progression. There is no hemorrhage. There are no abnormal extra-axial fluid collections. There is no calvarial fracture deformity. There is no pneumocephalus or hemo-sinus. IMPRESSION: Mild progressive chronic senescent changes but no hemorrhage, fracture or other acute/posttraumatic abnormalities. Dictated by: Dictated on workstation # [id number]
[2022-03-08 12:43] VITALS: BP 189/76
== END 2022-03-08 12:43 | disposition home or self-care (01) ==
LOC: EDUNIT# 10:54 → ER 10:56
DX: S09.90XA Unspecified injury of head, initial encounter (principal); S01.01XA Laceration without foreign body of scalp, initial encounter; I48.91 Unspecified atrial fibrillation; Z23 Encounter for immunization; Z79.01 Long term (current) use of anticoagulants; W01.198A Fall on same level from slipping, tripping and stumbling with subsequent striking against other object, initial encounter; Y92.009 Unspecified place in unspecified non-institutional (private) residence as the place of occurrence of the external cause
CPT/HCPCS: 70450; 90471; 90715

== ENCOUNTER 2022-03-17 11:50 | Emergency (ER) | payer MEDICARE ==
[~2022-03-17] VITALS: Ht 162 cm; Wt 64.0 kg
[2022-03-17 12:11] VITALS: BP 119/63
== END 2022-03-17 12:16 | disposition home or self-care (01) ==
LOC: EDUNIT# 11:50 → ER 11:51
DX: S01.01XD Laceration without foreign body of scalp, subsequent encounter (principal); X58.XXXD Exposure to other specified factors, subsequent encounter

== ENCOUNTER 2022-05-04 14:17 | Outpatient (RCR) | payer MEDICARE | END 2022-05-05 | disposition home or self-care (01) | PROVIDERS: ATTEND Internal Medicine | DX: M54.50 Low back pain, unspecified (principal); I10 Essential (primary) hypertension ==

== ENCOUNTER → 2022-05-20 | Outpatient (CLI) | payer MEDICARE ==
--- NOTE | 2022-05-20 18:18 | Diagnostic Imaging Report ---
HISTORY: Bilateral hand pain, arthritis. TECHNIQUE: Three views of the bilateral hands. COMPARISON: 01/13/2022. FINDINGS: RIGHT HAND: No acute fracture is seen in the right hand. Alignment appears normal. There are degenerative changes throughout the right hand with significant joint space loss noted. Degenerative changes are severe in the fifth DIP joint and in the basal joints of the thumb. 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 No erosions are seen. LEFT HAND: There are degenerative changes throughout the left hand, most severe in the second and fifth DIP joints and at the basal joints of the thumb. No acute fracture is seen. Alignment generally appears normal, and no erosive changes are seen. 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 IMPRESSION: 1. Degenerative changes in the bilateral hands, most severe in the bilateral fifth PIP joints, bilateral first carpometacarpal joints and left second DIP joint. Dictated by: Dictated on workstation # [id number]
== END ==
LOC: RAD 14:18
PROVIDERS: ATTEND Internal Medicine
DX: M19.141 Post-traumatic osteoarthritis, right hand (principal); M19.142 Post-traumatic osteoarthritis, left hand

== ENCOUNTER 2022-05-26 11:03 | Outpatient (RCR) | payer MEDICARE | END 2022-06-05 | disposition home or self-care (01) | PROVIDERS: ATTEND Internal Medicine | DX: M54.50 Low back pain, unspecified (principal); I10 Essential (primary) hypertension ==

== ENCOUNTER 2022-06-18 10:12 | Outpatient (RCR) | payer MEDICARE | END 2022-06-18 12:12 | disposition home or self-care (01) | PROVIDERS: ATTEND Internal Medicine | DX: M54.50 Low back pain, unspecified (principal); I10 Essential (primary) hypertension ==

== ENCOUNTER → 2022-08-02 | Outpatient (CLI) | payer MEDICARE ==
--- NOTE | 2022-08-02 17:34 | Diagnostic Imaging Report ---
Indication: Routine screening. Comparison is made with prior mammograms from 08/08/2020 and 02/26/2019. 2-D and 3-D bilateral screening mammography was performed with CAD. Both breasts are heterogeneously dense, limiting the sensitivity of mammography. There is a new density in the medial aspect of the left breast best seen on the CC view. This appears to be just below the nipple line on the MLO view. Additional views are recommended. Right breast is unremarkable. There are scattered benign calcifications. IMPRESSION: BI-RADS 0 Left breast density. Additional views are recommended for further evaluation. ACR BI-RADS Category 0: Incomplete. (Needs additional imaging evaluation). Result letter will be mailed to the patient. Note: At least 10% of breast cancer is not imaged by mammography. Dictated by: Dictated on workstation # [id number]
== END ==
LOC: RAD 13:53
PROVIDERS: ATTEND Internal Medicine
DX: Z12.31 Encounter for screening mammogram for malignant neoplasm of breast (principal)
CPT/HCPCS: 77063; 77067

== ENCOUNTER → 2022-08-12 | Outpatient (CLI) | payer MEDICARE ==
--- NOTE | 2022-08-12 15:17 | Diagnostic Imaging Report ---
Ultrasound left breast limited INDICATION: Abnormal mammogram The screening mammogram performed on 08/02/2022 noted a new density in the medial aspect of the left breast. On the diagnostic mammogram performed prior to this study, this density did not clearly resolve. The ultrasound examination of the left breast reveals that in the 9 o'clock position roughly 5 cm from the nipple, there is a 5 x 2 x 3 mm avascular hypoechoic area. This hypoechoic area is surrounded by an isoechoic rind which makes the entire region approximately 1 cm in size. I am suspicious that this does correspond to the finding of the mammogram. There does not appear to be any significant vascularity associated with this finding that would suggest it is an aggressive neoplastic process. Even so, the possibility that this is neoplastic in nature should still be considered. I would recommend an ultrasound-guided biopsy be performed to exclude malignancy. IMPRESSION: 1. There is an indeterminate roughly 1 cm lesion in the 9 o'clock position of the left breast. This may well correspond to the finding of the mammogram and an ultrasound-guided biopsy would be recommended to exclude malignancy. 2. These results were discussed with Dr. Alarcon at the time of this dictation. ACR BI-RADS Category 4: Suspicious abnormality. Result letter will be mailed to the patient. Note: At least 10% of breast cancer is not imaged by mammography. Dictated by: Dictated on workstation # [id number]
--- NOTE | 2022-08-12 19:56 | Diagnostic Imaging Report ---
INDICATION: Abnormal mammogram, EXAMINATION: 3D unilateral diagnostic left mammogram with CAD. The current study was also evaluated with a Computer Aided Detection (CAD) system. FINDINGS: The screening mammogram performed on 08/02/2022 noted a new density in the medial aspect of the left breast at middle depth. The compression and rolled views of this area show that this finding still seems to persist. This area is difficult to identify on the true lateral view. It is unclear whether this finding is related to superimposition or to an underlying abnormality. I would recommend that ultrasound of the left breast be performed to better characterize this finding. IMPRESSION: Ultrasound of the left breast would be recommended for further study. ACR BI-RADS Category 0: Incomplete. (Needs additional imaging evaluation). Result letter will be mailed to the patient. Note: At least 10% of breast cancer is not imaged by mammography. Dictated by: Dictated on workstation # [id number]
== END ==
LOC: RAD 12:15
PROVIDERS: ATTEND Internal Medicine
DX: N64.9 Disorder of breast, unspecified (principal)
CPT/HCPCS: 76642; 77065; G0279

== ENCOUNTER → 2022-08-26 | Day surgery (SDC) | payer MEDICARE ==
[~2022-08-26] VITALS: Ht 160 cm; Wt 62.7 kg
[~2022-08-26] MED LIST changes: +LIDOCAINE 1% INJ 30 ML (XYLOCAINE) VIAL INJ ONE
--- NOTE | 2022-08-26 11:56 | Diagnostic Imaging Report ---
INDICATION: Left breast nodule. Patient presents for ultrasound-guided biopsy. Patient brought to the sonographic suite placed in the supine position. Ultrasound imaging of the left breast was performed to evaluate appropriate entry site. Left breast was then prepped and draped in usual sterile fashion. Small amount 1% lidocaine was utilized for local anesthesia. A total of 4 core biopsies were obtained through the irregular hypoechoic nodule at the 9:00 location of the left breast utilizing a 14-gauge achieve needle. A marker clip was then deployed. Hemostasis was obtained using manual compression. Patient tolerated the procedure well and was sent for post procedure mammogram in satisfactory condition. IMPRESSION: Successful ultrasound-guided core biopsy of the hypoechoic irregular nodule at the 9:00 location left breast. Pathology results are currently pending. Dictated by: Dictated on workstation # [id number]
--- NOTE | 2022-08-26 14:56 | Diagnostic Imaging Report ---
Indication: Left breast density, status post ultrasound guided biopsy. Study is performed to evaluate clip placement. Unilateral left 2-D cc and ML mammography was performed after patient underwent left breast ultrasound-guided biopsy and clip placement. Left breast is heterogeneously dense, limiting sensitivity of mammography. There is a marker clip in the medial aspect of the left breast at mid depth near the area of previously described density. IMPRESSION: Marker clip placement, status post ultrasound-guided left breast biopsy. Dictated by: Dictated on workstation # [id number]
== END | disposition home or self-care (01) ==
LOC: RAD 10:50
PROVIDERS: ATTEND Nurse Practitioner Family
DX: C50.812 Malignant neoplasm of overlapping sites of left female breast (principal); I10 Essential (primary) hypertension; I48.0 Paroxysmal atrial fibrillation; K21.9 Gastro-esophageal reflux disease without esophagitis; Z79.01 Long term (current) use of anticoagulants; Z87.891 Personal history of nicotine dependence; Z17.0 Estrogen receptor positive status [ER+]
CPT/HCPCS: 19083 ×2; 77065; G0279; 88305; 88341; 88342; 88360

== ENCOUNTER → 2022-12-28 | Outpatient (CLI) | payer MEDICARE ==
[~2022-12-28] MED LIST changes: -LIDOCAINE 1% INJ 30 ML (XYLOCAINE) VIAL INJ ONE
--- NOTE | 2022-12-28 13:08 | Diagnostic Imaging Report ---
INDICATION: Postmenopausal state. COMPARISON: 05/21/2022 FINDINGS: AP Spine L1-L4: [BMD (g/cm2): 1.161] [T-Score: -0.3] [Z-Score: 1.7] [BMD Previous: 1.208] [BMD % Change: -3.9*] LT Hip Neck: [BMD (g/cm2): 1.039] [T-Score: 0.0] [Z-Score: 2.5] LT Hip Total: [BMD (g/cm2):1.124] [T-Score:0.9] [Z-Score: 3.3] [BMD Previous: 1.231] [BMD % Change: -8.7*] RT Hip Neck: [BMD (g/cm2):1.052] [T-Score:0.1] [Z-Score:2.6] RT Hip Total: [BMD (g/cm2):1.055] [T-score:0.4] [Z-Score:2.8] [BMD Previous:1.162] [BMD % Change:-9.2*] *Indicates significant change from prior examination based on 95% confidence level. World Health Organization criteria for BMD interpretation classify patients as Normal (T-score at or above -1.0), Osteopenic (T-score between -1.0 and -2.5) or Osteoporotic (T-score at or below -2.5). LIMITATIONS AND MODIFICATION: None. IMPRESSION: 1. Normal bone mineral density. 2. Bone mineral density has decreased by a statistically significant amount, as detailed above. 3. See below National Osteoporosis Foundation guidelines on when to potentially initiate pharmacologic therapy. Based on the National Osteoporosis Foundation Guidelines, pharmacologic treatment should be initiated in any of the following, unless clinical conditions suggest otherwise: * Any patient with prior fragility fracture of the hip or vertebrae. A spine fracture indicates 5X risk for subsequent spine fracture and 2X risk for subsequent hip fracture. * Osteoporosis (T-score <-2.5). * Postmenopausal women and men age 50 and older with low bone mass/osteopenia (T-score between -1.0 and -2.5) by DXA and 10-year major osteoporotic fracture greater than 20% or a 10-year probability of hip fracture greater than 3%. These fracture risks are supplied above in the FRAX score, if applicable. * Clinician judgement and/or patient preferences may indicate treatment for people with 10-year fracture probabilities above or below these levels. Dictated by: Dictated on workstation # [id number]
== END ==
LOC: RAD 10:25
PROVIDERS: ATTEND Internal Medicine Hematology & Oncology
DX: M19.90 Unspecified osteoarthritis, unspecified site (principal); C50.312 Malignant neoplasm of lower-inner quadrant of left female breast; Z78.0 Asymptomatic menopausal state
CPT/HCPCS: 77080